=== PATIENT | female | born 1970 | race Two or more races ===

== ENCOUNTER → 2016-08-22 | Outpatient (CLI) | payer OTHER | END | disposition home or self-care (01) | LOC: RAD 15:14 | PROVIDERS: ATTEND Nurse Practitioner Family | DX: K76.89 Other specified diseases of liver (principal); Q63.2 Ectopic kidney | CPT/HCPCS: 74177 ==

== ENCOUNTER 2018-10-30 08:13 | Outpatient (CLI) | payer OTHER | END 2018-10-30 23:59 | disposition home or self-care (01) | LOC: CFH 08:13 | PROVIDERS: ATTEND Obstetrics & Gynecology | DX: N64.4 Mastodynia (principal) | CPT/HCPCS: 76642; 77066; G0279 ==

== ENCOUNTER → 2020-01-16 | Outpatient (CLI) | payer OTHER | END | disposition home or self-care (01) | LOC: CFH 07:12 | PROVIDERS: ATTEND Obstetrics & Gynecology | DX: Z12.31 Encounter for screening mammogram for malignant neoplasm of breast (principal); N60.02 Solitary cyst of left breast; N60.01 Solitary cyst of right breast | CPT/HCPCS: 76641; 77063; 77067 ==

== ENCOUNTER → 2020-03-30 | Outpatient (CLI) | payer OTHER ==
[~2020-03-30] MED LIST: CYAN1TAB29 PO; MULT-658 PO; MV-M1TAB16 PO; vitamin e PO
== END | disposition home or self-care (01) ==
LOC: STAR 09:54
PROVIDERS: ATTEND Obstetrics & Gynecology Female Pelvic Medicine and Reconstructive Surgery
DX: Z01.812 Encounter for preprocedural laboratory examination (principal); Z20.828 Contact with and (suspected) exposure to other viral communicable diseases; R10.2 Pelvic and perineal pain; N39.3 Stress incontinence (female) (male); N81.10 Cystocele, unspecified; N81.6 Rectocele; N95.0 Postmenopausal bleeding
CPT/HCPCS: 71046; 87635

== ENCOUNTER 2020-04-05 10:25 | Day surgery (SDC) | payer OTHER ==
[~2020-04-05] VITALS: Ht 154.9 cm; Wt 62.0 kg
[~2020-04-05 10:25] MED LIST changes: +BUPIVACAINE/PF 0.25% ONE; +BUPIVACAINE/PF 0.5% ONE
[2020-04-05] MEDS ORDERED: NEOMY/POLYMYXIN B GU IRR. 1 ML ONE (10:33)
[2020-04-05] MEDS ORDERED: CHLORHEXIDINE 15 ML UDC MM STA (10:49)
[2020-04-05] MEDS ORDERED: LACTATED RINGERS 1,000 ML IV SCH (11:00)
[2020-04-05 11:16] VITALS: BP 103/72
[2020-04-05 11:50] LABS: HCG UR SG 1.022 (1.003-1.030)
[2020-04-05] MEDS ORDERED: FENTANYL PF 250 MCG/5ML ONE (13:10)
[2020-04-05] MEDS ORDERED: MIDAZOLAM 1 MG/ML, 2ML ONE (13:10)
[2020-04-05] MEDS ORDERED: MEPERIDINE/PF 25MG/0.5ML IVPush PRN (13:30)
[2020-04-05] MEDS ORDERED: HYDROmorphone 1 MG/ML, 1ML INJ IVPush PRN (13:30)
[2020-04-05] MEDS ORDERED: LABETALOL 5MG/ML, 20ML IV PRN (13:30)
[2020-04-05] MEDS ORDERED: FENTANYL PF 100 MCG/2ML IV PRN (13:30)
[2020-04-05] MEDS ORDERED: OXYcodone 5 MG/5 ML ORAL.SOL UDC PO PRN (13:30)
[2020-04-05] MEDS ORDERED: HALOPERIDOL 5 MG/ML IV PRN (13:30)
[2020-04-05] MEDS ORDERED: DIPHENHYDRAMINE 50 MG/ML, 1ML IVPush PRN (13:30)
[2020-04-05] MEDS ORDERED: hydrALAzine 20 MG/ML, 1ML IV PRN (13:30)
[2020-04-05] MEDS ORDERED: HYDROcodone/APAP 7.5-325MG/15ML UDC PO PRN (13:30)
[2020-04-05] MEDS ORDERED: PROMETHAZINE 25 MG/ML, 1ML IVPush PRN (13:30)
[2020-04-05] MEDS ORDERED: DEXAMETHASONE 4 MG/ML, 1ML ONE (13:57)
[2020-04-05] MEDS ORDERED: BUPIVACAINE/PF-EPI 0.25% 1:200K INFIL ONE ×2 (14:39→14:40)
[2020-04-05] MEDS ORDERED: NEOMY/POLYMYXIN B GU IRR. 1 ML IRRIG ONE (14:40)
[2020-04-05] MEDS ORDERED: KETOROLAC 30 MG/1 ML ONE (14:50)
[2020-04-05] MEDS ORDERED: FLUORESCEIN SODIUM 500 MG/5 ML ONE (15:00)
[2020-04-05] MEDS ORDERED: ONDANSETRON 2MG/ML, 2ML ONE (15:20)
[2020-04-05] MEDS ORDERED: PROPOFOL 10 MG/ML, 20ML ONE (15:20)
[2020-04-05] MEDS ORDERED: SUCCINYLCHOLINE 20 MG/ML, 10ML ONE (15:20)
[2020-04-05] MEDS ORDERED: ROCURONIUM 10MG/ML,5ML ONE (15:20)
[2020-04-05] MEDS ORDERED: CEFAZOLIN 1,000 MG ONE (15:20)
[2020-04-05] MEDS ORDERED: GLYCOPYRROLATE 0.2MG/1ML, 5ML ONE (15:20)
[2020-04-05] MEDS ORDERED: NEOSTIGMINE 1 MG/ML, 10ML ONE (15:20)
[2020-04-05] MEDS ORDERED: MEPERIDINE/PF 25MG/ML,1ML ONE (15:44)
[2020-04-05] MEDS ORDERED: HYDROcodone/APAP 7.5-325MG/15ML UDC ONE (16:21)
[2020-04-05] MEDS ORDERED: FENTANYL PF 100 MCG/2ML ONE (16:37)
== END 2020-04-05 19:05 | disposition home or self-care (01) ==
LOC: OUT 10:25
PROVIDERS: ATTEND Obstetrics & Gynecology Female Pelvic Medicine and Reconstructive Surgery
DX: D25.9 Leiomyoma of uterus, unspecified (principal); N94.6 Dysmenorrhea, unspecified; N92.1 Excessive and frequent menstruation with irregular cycle; N94.10 Unspecified dyspareunia; N81.89 Other female genital prolapse; N81.11 Cystocele, midline; N81.5 Vaginal enterocele; N81.6 Rectocele; N39.46 Mixed incontinence; N83.02 Follicular cyst of left ovary; N83.01 Follicular cyst of right ovary
CPT/HCPCS: 57265; 57282; 57288; 58552; 81025; 88307; C1771; J0330; J0690; J1100; J1200; J1885; J2175; J2250; J2405; J2704; J2710; J3010; J7120